=== PATIENT | male | born 1990 | race Hispanic/Latino ===

== ENCOUNTER 2025-07-14 22:01 | Emergency (ER) | payer SELFPAY ==
[2025-07-14 22:07] VITALS: BP 131/81; PULSE 97; RESP 18; TEMP 36.5; O2SAT 97; BMI 21.4
--- NOTE | 2025-07-14 22:15 | RAD_ITS ---
PROCEDURE: RIGHT HAND MIN 3 VIEWS 07/14/2025 REASON FOR EXAM: PAIN, DECREASED ROM TECHNIQUE: Procedure Code: LATRELL Modality: DX Procedure: HAND MIN 3 VIEWS Laterality: Right COMPARISON: None. FINDINGS: No acute fracture or dislocation. Alignment is anatomic. Preserved joint spaces. No aggressive osseous lesion. No marked soft tissue swelling or radiopaque foreign body. RAD/Hand Min 3 Views IMPRESSION: No acute fracture or dislocation. Reading Location: [id number]
--- NOTE | 2025-07-14 22:40 | EDS_ITS ---
HPI History of Present Illness Chief Complaint: Upper Extremity Injury PFSH PFSH Allergy/AdvReac Type Severity Reaction Status Date / Time No Known Allergies Allergy Verified 07/14/25 22:07 EXAM Physical Exam Const Vital Signs: 07/14/25 22:07 Temperature 97.7 F L Temperature Source Temporal Pulse Rate 97 Respiratory Rate 18 Blood Pressure 131/81 H Blood Pressure Mean 97 Pulse Ox 97 Oxygen Delivery Method Room Air [facility] Narrative Medical decision making narrative: HISTORY OF PRESENT ILLNESS: Chief complaint: Hand pain 35-year-old male who presents after injuring his right hand. Notes he is right- hand dominant. Notes he walked out on the porch and a ladder and tripped and fell landing on his right hand. Denies head trauma loss of conscious. Denies elbow pain or shoulder pain REVIEW OF SYSTEMS: Pertinent positives: Hand pain Pertinent negatives:Elbow/shoulder pain PHYSICAL EXAM: Nursing triage notes reviewed, Vital signs reviewed Constitutional: please see mdm Extremities: No edema. Right hand with TTP over the interspace between the 1st and 2nd digit. No obvious open fractures or lacerations. No snuffbox tenderness. No obvious deformities. Neuro: Intact 5/5 strength with ok sign (median), intact finger abduction (ulnar) intact wrist extension (radial n). Intact sensation in the radial, ulnar, and median nerve distributions. Skin: No rash or lesions noted MEDICAL DECISION MAKING: Chief Complaint: please see [facility] External records reviewed: No prior imaging studies noted Factors affecting care: none Social determinants of health: none History obtained from others: none Consults: none [facility] Narrative: The patient was initially hemodynamically stable, afebrile and nontoxic- appearing. Exam with neurovascular intact right upper extremity.
--- NOTE | 2025-07-14 22:40 | EX.ED.UPPERE ---
HPI History of Present Illness Chief Complaint: Upper Extremity Injury PFSH PFSH Allergy/AdvReac Type Severity Reaction Status Date / Time No Known Allergies Allergy Verified 07/14/25 22:07 EXAM Physical Exam Const Vital Signs: 07/14/25 22:07 Temperature 97.7 F L Temperature Source Temporal Pulse Rate 97 Respiratory Rate 18 Blood Pressure 131/81 H Blood Pressure Mean 97 Pulse Ox 97 Oxygen Delivery Method Room Air [facility] [place] Narrative Medical decision making narrative: HISTORY OF PRESENT ILLNESS: Chief complaint: Hand pain 35-year-old male who presents after injuring his right hand. Notes he is right-hand dominant. Notes he walked out on the porch and a ladder and tripped and fell landing on his right hand. Denies head trauma loss of conscious. Denies elbow pain or shoulder pain REVIEW OF SYSTEMS: Pertinent positives: Hand pain Pertinent negatives:Elbow/shoulder pain PHYSICAL EXAM: Nursing triage notes reviewed, Vital signs reviewed Constitutional: please see [facility] Extremities: No edema. Right hand with TTP over the interspace between the 1st and 2nd digit. No obvious open fractures or lacerations. No snuffbox tenderness. No obvious deformities. Neuro: Intact 5/5 strength with ok sign (median), intact finger abduction (ulnar) intact wrist extension (radial n). Intact sensation in the radial, ulnar, and median nerve distributions. Skin: No rash or lesions noted MEDICAL DECISION MAKING: Chief Complaint: please see HPI External records reviewed: No prior imaging studies noted Factors affecting care: none Social determinants of health: none History obtained from others: none Consults: none [facility] Narrative: The patient was initially hemodynamically stable, afebrile and nontoxic-appearing. Exam with neurovascular intact right upper extremity. I considered the following differential diagnosis: Fracture, dislocation, contusion I obtained an x-ray to further determine if the patient was suffering from a life-threatening etiology. ALL IMAGES (IF OBTAINED) HAVE BEEN PERSONALLY REVIEWED AND INTERPRETED BY MYSELF. X-ray of the right hand was read and reviewed personally by myself showed no evidence of obvious bony abnormality. The patient is likely suffered a contusion. Ice, Tylenol, ibuprofen instructions given. Thumb spica splint given for stabilization for pain control. Return precautions were discussed The patient and/or family, caregivers express understanding. The patient and/or family, caregivers agrees with the plan. Shared decision making: I will have a discussion with the patient and or visitors regarding risk/benefits of further testing or admission. They will be made aware of of the risk/benefits inherent in this decision they will be given the opportunity to voice understanding. Total critical care time today provided was at least 0 minutes. This excludes separately billable procedures. Critical care time (if documented) is secondary to the patient having high probability of clinically significant/life threatening deterioration in the patient's condition which required my urgent intervention. Impression: 1. Acute hand pain 2. Hand contusion Dispo: Discharge home This note was generated with [employer] dictation software. It may contain incorrect words, spelling, and punctuation that were not noted in review of the chart prior to signing. Radiography Diagnostic Testing: Clinical Impression(s) from Imaging Studies Hand X-Ray 07/14/25 22:15 IMPRESSION: No acute fracture or dislocation. [id number] Triage Chief Complaint: Upper Extremity Injury ED Provider: Harry Alexander Dx/Rx/DC Orders Instructions: ED Hand Contusion Activity Restrictions/Additional Instructions: Thank you for trusting us with your care today! Please take Tylenol (2 pills, 650 mg), ibuprofen (2 pills, 400 mg) every 6 hours as needed for pain and fever control. The x-ray of your hand was negative for broken bone. Please return to the emergency department if your symptoms change or worsen. Please follow with your primary care physician for further outpatient evaluation and management. Print Language: Frisian Disposition Disposition: Home, Self Care
--- NOTE | 2025-07-14 23:09 | ED.RN ---
pt left prior to splint placement.
== END 2025-07-14 23:17 | disposition home or self-care (01) ==
LOC: ED 22:56
PROVIDERS: Emergency Provider Emergency Medicine; Visit Provider Emergency Medicine
DX: S60.221A Contusion of right hand, initial encounter (principal); W01.0XXA Fall on same level from slipping, tripping and stumbling without subsequent striking against object, initial encounter
CPT/HCPCS: 73130; 99282